=== PATIENT | female | born 1990 | race Caucasian/White ===

== ENCOUNTER 2018-04-21 09:23 | Inpatient (IN) | payer BC ==
--- NOTE | 2018-04-21 10:15 | HP ---
General Information - General Information Maternal Age: 27 Grav: 3 Para: 2 SAB: 0 IEA: 0 Estimated Due Date: 04/22/18 Determined By: Early Ultrasound Gestational Age in Weeks and Days: 39 Weeks and 6 Days Maternal Blood Type and Rh: A Negative - Results this Serology/RPR Result: Non-Reactive Rubella Result: Immune HBsAg Result: Negative HIV Result: Negative GBS Culture Result: Negative Past Medical History Delivery History: Hx Uncomplicated Vaginal Delivery - 2 x SVB 2014, 2015 Pertinent Past Medical History: Non-Contributory Pertinent Past Surgical History: See Records - T&A @ age 6, Industry teeth Pertinent Family History: Non-Contributory - Antepartal Records Antepartal Records: Reviewed, Complicated by: - HSV--prophylaxis given Review of Systems Constitutional: Uncomfortable CV Complaint: No Respiratory: Shortness of Breath: No Gastrointestinal: No Nausea/Vomiting, Normal Bowel Movement Genitourinary: No Dysuria, No Bleeding, No Leaking Fluid - Brownish/green discharge on arrival @ L&D, possible meconium? Musculoskeletal: Contractions Neurological: No Headache, No Visual Changes Movement: Normal Exam Allergies/Adverse Reactions: Allergies No Known Allergies Allergy (Verified 04/21/18 09:57) BP 123/76 HR 71 T 98.3 RR 20 O2 100 - Measurements Height: 5 ft 10 in Weight: 155 lb Weight in lbs: [id number] Body Mass Index (BMI): 22.2 Pre- Weight: 125 lb Weight Gained This : 30.000 lbs and 0.002 ozs - Exam Abdomen: No Upper Quadrant Pain Breast: Breast Exam Deferred CVA: No CVA Tenderness Extremities: No Edema Heart: Normal Rhythm/Heart Sounds HEENT: No Significant Findings Lungs: Clear Bilaterally Rectal: Rectal Exam Deferred Reflexes: - - deferred Thyroid: - - WNL on entry to care Other Exam Findings: No evidence of vulval herpetic lesions on exam - Abdominal Exam Abdomen Exam: Non-Tender, Fundal Height Consistent with Dates - Ultrasound/Biophysical Profile Ultrasound Status: Not Done Targeted Exam Findings See L&D Outpatient Visit Provider Note for Findings: N/A Estimated Weight: EFW 7.5-8lb Cervical Exam: 5cm Effacement: 80% Station: -2 Presenting Part: Vertex Membrane Status: Bulging Amniotic Fluid Evaluation: Meconium - Green/brown mucus discharge that appears to be meconium stained, but bulging bag felt on exam Bleeding/Discharge: None EFM Findings - External Monitor Findings Baseline Heart Rate: 140 External Monitor Findings: Accelerations Present, No Pattern of Variable or Late Decelerations, Variability Moderate Contractions: Regular, Strong, 45-90 Seconds Contraction Frequency: Q3-4 Assessment/Plan - Reason for Visit Reason for Visit: IUP @ 39+6 weeks gestation, possible meconium stained mucus but seemingly IBOW. No evidence metabolic acidemia. In active labor - Date/Time of Admission Date of Admission: 04/21/18 Time of Admission: 09:25
--- NOTE | 2018-04-21 12:20 | PROCNOTE ---
[facility] OB: Delivery Note - Delivery A Date of : 04/21/18 Time of : 11:15 [place] Sex: Female Weight at : 8 lb 2 oz Score 1 Minute: 8 Score 5 Minutes: 9 Gestational Age in Weeks and Days at Delivery: 39 Weeks and 6 Days Delivery Method: Spontaneous Vaginal Labor: Spontaneous Did Patient attempt ?: N/A, No Previous Amniotic Fluid: Meconium Estimated Blood Loss: 300 - Revised to 550ml post-delivery Anesthesia/Analgesia: None Delivered By: Radah Cook - Nursery Level of Nursery: Regular/Bedside - Perineum Perineal Injury: None/Intact - Events Delivery Events of Note: Pitocin Only After Delivery, Post- Bleeding - Meds Given - Risk for Falls Delivered OB Patient- Risk for Falls: Heavy Bleeding Fall Risk: Patient is at High Risk for Falls - Additional Delivery Notes Additional Delivery Notes: Pt admitted in active labor. Used tub for pain control until urge to push. Moved to bed, initially on hands and knees, turned to back. Pushing began 1108 with SROM with mec filled fluid @ 1114. Baby born 1115 OA to S[place]MY[place], slow controlled delivery of head over intact perineum. Shoulders followed with maternal efforts. Baby to lower maternal abdomen d/t slightly short cord. Initially stunned but spontaneous cry by 30 seconds with dry and stimulation. Cord doubly clamped and cut by patient herself. Placenta delivered with gentle cord traction @ 1120, small amount of calcifications and meconium staining. Fundus initially firm to massage but small trickle noted so 10 U IM pitocin given. Initial EBL 300ml. Approx 45 minutes post delivery, additional 250ml in clots express. Cyctotec 800mcg given [place] with firm fundus and no active bleeding noted after. Baby at breast to initiate .
[2018-04-21] MEDS ORDERED: Glycerin ADULT SUPP PR PRN (13:40)
[2018-04-21] MEDS ORDERED: Acetaminophen TAB* 325 MG PO PRN (13:40)
[2018-04-21] MEDS ORDERED: Misoprostol TAB* 200 MCG PR ONE (13:40)
[2018-04-21] MEDS ORDERED: Dibucaine 1% 28.35 GM TUBE PR PRN (13:40)
[2018-04-21] MEDS ORDERED: OXYTOCIN* 10 UNITS/ML 1 ML VIAL IM ONE (13:40)
[2018-04-21] MEDS ORDERED: Witch Hazel PAD* JAR TOPICAL PRN (13:40)
[2018-04-21] MEDS ORDERED: Methylergonovine INJ* 0.2 MG/ML 1ML AMP IM ONE (13:40)
[2018-04-21] MEDS ORDERED: Ibuprofen TAB* 600 MG ONE (13:46)
[2018-04-21] MEDS ORDERED: Oxytocin in LR* 20 UNITS/1,000 ML BAG IVPB ONE (13:46)
[2018-04-21] MEDS ORDERED: Docusate CAP* 100 MG ONE (13:46)
[2018-04-21] MEDS: Ibuprofen TAB* 600 MG PO PRN ×2 (13:49→20:35)
[2018-04-21] MEDS: Docusate CAP* 100 MG PO SCH ×2 (13:50→20:35)
[2018-04-21] MEDS ORDERED: Oxytocin in LR* 20 UNITS/1,000 ML BAG IVPB SCH (14:00)
--- NOTE | 2018-04-21 14:38 | PN ---
Progress Note - Progress Note Date of Service: 04/21/18 - Note time 1330 SOAP: Subjective: [Feeling well, cramping mild though increased when .] Objective: [RN expressed clots/bleeding approx 100-150ml. Fundus firm.] Assessment: [Continued PP bleeding] Plan: [Initiate IV access, bolus of LR, IV pitocin in bag to run @ 300ml/hr. IM Methergine 0.2mg ordered PRN for any continued bleeding]
[2018-04-22 06:44] LABS: ABS Basophils 0 10^3/ul (0-0.2); ABS Eosinophils 0 10^3/ul (0-0.6); ABS Lymphocytes 1.3 10^3/ul (1.0-4.8); ABS Monocytes 0.8 10^3/ul (0-0.8); ABS Nucleated RBC 0 10^3/ul; Eosinophil % 0.3 % (0-6); Hematocrit 21 % (35-47); Hemoglobin 7.6 g/dl (12.0-16.0); Lymphocyte % 11.1 % (25-47); Mean Corpuscular HGB Conc 36 g/dl (31-36); Mean Corpuscular Hemoglobin 32 pg (27-31); Mean Corpuscular Volume 90 fL (80-97); Nucleated Red Blood Cells % 0; Platelet Count 161 10^3/ul (150-450); Red Blood Count 2.33 10^6/ul (4.00-5.40); Red Cell Distribution Width 14 % (10.5-15); White Blood Count 12.2 10^3/ul (3.5-10.8)
[2018-04-22] MEDS: Ferrous Gluconate TAB* 324 MG TAB PO SCH ×2 (08:43→20:18)
[2018-04-22] MEDS: Docusate CAP* 100 MG PO SCH ×3 (08:43→20:18)
[2018-04-22] MEDS: Ibuprofen TAB* 600 MG PO PRN ×2 (08:44→20:17)
[2018-04-22 19:26] LABS: Hematocrit 21 % (35-47); Hemoglobin 7.6 g/dl (12.0-16.0)
[2018-04-23 08:19] VITALS: BP 107/57
[2018-04-23] MEDS: Ferrous Gluconate TAB* 324 MG TAB PO SCH (09:44)
[2018-04-23] MEDS: Docusate CAP* 100 MG PO SCH (09:44)
== END 2018-04-23 11:37 | disposition home or self-care (01) | DRG 560 ==
LOC: MCHOBOUT 09:23 → MCHOB 10:23
PROVIDERS: ADMIT Midwife; ATTEND Midwife
PROC: 10E0XZZ Delivery of Products of Conception, External Approach (ICD-10-PCS; principal; 2018-04-21)
DX: O77.0 Labor and delivery complicated by meconium in amniotic fluid (principal); O72.0 Third-stage hemorrhage; O90.81 Anemia of the puerperium; D64.9 Anemia, unspecified; Z3A.39 39 weeks gestation of pregnancy; Z37.0 Single live birth
CPT/HCPCS: 36415; 85014; 85018; 85025; A9270-GY; J2590